=== PATIENT | female | born 1980 | race Caucasian/White ===

== ENCOUNTER 2022-04-30 11:25 | Emergency (ER) | payer OTHER, SELFPAY ==
[2022-04-30 11:42] VITALS: BP 123/87; PULSE 107; RESP 22; TEMP 36.6; O2SAT 98
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
== END 2022-04-30 14:47 | disposition home or self-care (01) ==
PROVIDERS: Emergency Provider Nurse Practitioner Family
DX: S06.0X1A Concussion with loss of consciousness of 30 minutes or less, initial encounter (principal); V89.2XXA Person injured in unspecified motor-vehicle accident, traffic, initial encounter
CPT/HCPCS: 99281; 99284

== ENCOUNTER 2022-10-06 01:38 | Outpatient (CLI) | payer BC, SELFPAY ==
[2022-10-06 12:45] LABS: Anion Gap 7.6 mmol/L (3-11); BUN 10 mg/dL (7-18); CO2 30.4 mmol/L (21.0-32.0); CREATININE 0.8 mg/dL (0.55-1.02); Calcium 8.8 mg/dL (8.5-10.1); Calculated LDL 212 mg/dL (<100); Chloride 101 mmol/L (98-107); Cholesterol 288 mg/dL (<200); Glucose 81 mg/dL (74-106); HDL Cholesterol 51 mg/dL (40-60); Potassium 3.8 mmol/L (3.5-5.1); Sodium 139 mmol/L (136-145); TSH (W/Ref FT4) 2.64 uIU/mL (0.36-3.74); Triglyceride 125 mg/dL (<150)
== END 2022-10-06 01:39 | disposition home or self-care (01) ==
LOC: LOS 01:39
PROVIDERS: PCP Nurse Practitioner Family; Visit Provider Nurse Practitioner Family
DX: E03.9 Hypothyroidism, unspecified (principal)
CPT/HCPCS: 36415; 80048; 80061; 84443

== ENCOUNTER 2022-10-16 04:04 | Outpatient (CLI) | payer BC, SELFPAY ==
[2022-10-16 10:10] LABS: Hemoglobin A1C 5.3 % (<5.7)
[2022-10-16 10:17] LABS: ALT 20 U/L (14-59); AST 14 U/L (15-37); Albumin 3.9 g/dL (3.4-5.0); Alkaline Phosphatase 40 U/L (46-116); Anion Gap 9.2 mmol/L (3-11); BUN 12 mg/dL (7-18); Bilirubin, Total 0.6 mg/dL (0.2-1.0); CO2 26.8 mmol/L (21.0-32.0); CREATININE 0.9 mg/dL (0.55-1.02); Calcium 8.9 mg/dL (8.5-10.1); Chloride 103 mmol/L (98-107); Estimated GFR 81.35 (mL/min/1.73m2); Ferritin 43 ng/mL (8-252); Folate 16.3 ng/mL (8.6-20.0); Glucose 93 mg/dL (74-106); Potassium 3.6 mmol/L (3.5-5.1); Sodium 139 mmol/L (136-145); TSH 2.62 uIU/mL (0.36-3.74); Total Protein 7.4 g/dL (6.4-8.2); Vitamin B12 469 pg/mL (193-986)
[2022-10-16 10:20] LABS: Iron 155 ug/dL (50-170); Total Iron Binding Capacity 289 ug/dL (250-450); Transferrin Sat 54 % (15-50)
[2022-10-16 17:47] LABS: T3,Free 3.5 pg/mL (2.8-5.3)
[2022-10-16 19:18] LABS: Thyroperoxidase Antibody 984 U/mL (<=60)
[2022-10-17 16:45] LABS: Lipoprotein (a) 170 nmol/L (<75)
[2022-10-18 08:59] LABS: Homocysteine 7.2 umol/L (5.0-13.9)
[2022-10-19 13:59] LABS: IgA 99 mg/dL (85-499); Interpretation (See Note); Tissue Transglutaminase IgA <1.2 U/mL (<4.0)
== END 2022-10-16 04:05 | disposition home or self-care (01) ==
LOC: LBO 04:04
PROVIDERS: PCP Nurse Practitioner Family; Visit Provider Naturopath
DX: E78.5 Hyperlipidemia, unspecified (principal); R53.83 Other fatigue; R19.7 Diarrhea, unspecified; E03.8 Other specified hypothyroidism; R79.89 Other specified abnormal findings of blood chemistry
CPT/HCPCS: 36415; 80053; 82784; 83090; 83516; 83695; 82607; 82728; 82746; 83036; 83540; 83550; 84439; 84443; 84481; 86376

== ENCOUNTER 2022-11-16 08:51 | Outpatient (CLI) | payer BC, SELFPAY ==
[2022-11-16 13:34] LABS: Calculated LDL 199 mg/dL (<100); Cholesterol 265 mg/dL (<200); HDL Cholesterol 51 mg/dL (40-60); Triglyceride 75 mg/dL (<150)
== END 2022-11-16 08:52 | disposition home or self-care (01) ==
LOC: LOS 08:53
PROVIDERS: PCP Nurse Practitioner Family; Visit Provider Nurse Practitioner Family
DX: E78.5 Hyperlipidemia, unspecified (principal)
CPT/HCPCS: 36415; 80061

== ENCOUNTER 2022-12-18 00:51 | Outpatient (CLI) | payer BC, SELFPAY ==
--- NOTE | 2022-12-18 06:28 | ETT_ITS ---
APPROVED REPORT Exam: Exercise Treadmill Patient Location: Out-Patient Room/Bed: Stress Nurse: Luli Bailey RN Ordering Provider:ANDREELAZ BASSETTTANNER, Contact Number: [phone] BMI: 22.84 Baseline Rhythm: Sinus Rhythm Indications: Central chest pain Medical History Medical History: HLD, anxiety, depression, GERD, IBS Cardiac Medications: None Allergies: NKDA Cardiac Risk Factors: Family history, HLD Previous Cardiac Procedures: None Pretest Chest Pain Characteristics: None Exercise History: Indeterminate Physical Disabilities: None Lung Sounds: Clear to auscultation Heart Sounds: Regular Stress Test Details Test: Exercise stress testing was performed using a Ez protocol. Rest Stress HR Resting HR Supine: 82 bpm Max Heart Rate (APMHR): 176 bpm Resting HR Standin bpm Target HR (85% APMHR): 150 bpm Max HR Achieved: 179 bpm % of APMHR: 102 Recovery HR: 103 bpm HR response to stress: Normal HR response to stress BP Resting BP Supine: 106/82 mmHg Resting BP Standin/84 mmHg Max BP: 124/76 mmHg Recovery BP: 104/80 mmHg BP response to stress: Normal blood pressure response to stress. ECG Resting ECG: Sinus Rhythm, nonspecific ST-T abnormalities inferior and lateral leads Ectopy: Rare PVC Stress ECG: Sinus Tachycardia, nonspecific ST-T abnormalities inferior and lateral leads ST Change: No significant ST segment changes noted Arrhythmia: None Recovery ECG: Sinus Tachycardia, nonspecific ST-T abnormalities, inferior and lateral leads Recovery ST Change: No significant ST segment changes noted Recovery Arrhythmia: None Clinical Reason for Termination: Target HR Achieved, Fatigue Stress Symptoms: Chest discomfort (mild) , General Fatigue Exercise duration: 08 min18 sec Highest Stage Reached: Stage 3: 3.4 mph at 14% grade. Exercise capacity: 10.16 METs Angina Score: Non-Limiting Berry Treadmill Score: 3.4 Rate Pressure Product: [id number] Stress ECG Conclusion 1. Resting electrocardiogram showed an IVCD and nondiagnostic ST abnormalities 2. Patient exercised on the Ze protocol completed a workload of 10.16 METS 3. Normal heart rate and blood pressure response to exercise. Patient achieved greater than 100% of predicted heart rate for age 4. Electrocardiographic portion of the test was negative for myocardial ischemia 5. There were no significant dysrhythmias Berry Treadmill Score is 3.4 which is Moderate risk. Stress Test Summary STAGE Time (mins) Speed (mph) Grade (%) HR BP SpO2 SYMPTOMS METS Supine 82 106/82 100 Standing 99 108/84 100 1 3 1.7 10 146 120/78 95 Mild chest discomfort 4.5 2 6 2.5 12 164 124/70 98 Chest discomfort resolved 7 3 9 3.4 14 176 10 1 min recovery 132 124/76 98 3 min recovery 110 116/82 99 6 min recovery 103 104/80 99
== END 2022-12-18 01:11 ==
LOC: DI 00:52
PROVIDERS: PCP Nurse Practitioner Family; Visit Provider Nurse Practitioner Family
DX: R07.9 Chest pain, unspecified (principal)
CPT/HCPCS: 93017

== ENCOUNTER 2023-01-03 00:38 | Outpatient (CLI) | payer BC, SELFPAY ==
--- NOTE | 2023-01-03 07:30 | DI.US_ITS ---
Exam(s) US SOFT TISSUE EXTREMITY EXAM: US SOFT TISSUE EXTREMITY CLINICAL HISTORY: painful nodule of left leg,r22.42. TECHNIQUE: Ultrasound was performed using standard protocol. COMPARISON: No exams were available for comparison FINDINGS: Sonographic assessment utilizing grayscale and color Doppler imaging was performed and targeted to th e area of clinical concern. There is a 0.5 x 0.4 x 0.5 cm homogeneously cystic lesion in the left lower extremity corresponding t o the palpable abnormality. No internal vascularity is seen. It shows posterior acoustic enhancemen t consistent with a cystic lesion. IMPRESSION: 0.5 cm cystic lesion in the left lower extremity soft tissues corresponding to the palpable abnormali ty. Its appearance suggests a benign cyst. Sequelae of trauma, such as a resolving hematoma or sero ma, cannot be excluded. DATA REPOSITORY:
--- NOTE | 2023-01-03 07:30 | DI.MAMMO_ITS ---
Exam(s) MAMMO SCREENING EXAM: MAMMO SCREENING CLINICAL HISTORY: screening,Z12.39. TECHNIQUE: Bilateral full field digital CC and MLO mammographic images were obtained with 3D tomosyn thesis and utilizing computer aided detection (CAD). COMPARISON: Prior outside 2015 mammograms were reviewed. FINDINGS: There has been no significant change in the appearance and distribution of the fibroglandular tissue. There are no new spiculated masses nor malignant appearing microcalcification groups. There is no significant architectural distortion nor skin thickening-retraction. IMPRESSION: No radiographic evidence of malignancy. BI-RADS Category 1 - Negative Breast Density - Category C - Heterogeneously dense Breast density Category C or D implies that the patient has dense breast tissue. Dense breast tissue can make it harder to find cancer on a mammogram. Dense breast tissue is also associated with an incr eased risk of breast cancer. This information about the result of the mammogram report was provided to the patient to raise their awareness. Use this report when you speak with the patient about their risks for breast cancer, which includes their family history. At that time, you may recommend additional screening tests (Ultrasoun d or MRI) as these tests may add significant information. A negative radiographic report should not delay biopsy if a dominant or clinically suspicious mass is present. Up to ten percent of cancers are not identified on mammography. A negative report may reinforce clinical impression. Adenosis and dense breasts may obscure an underlying neoplasm. False positive reports average 6 to 10%. Patient will receive a letter notifying them of these results.
== END 2023-01-03 00:58 ==
LOC: DI 00:38
PROVIDERS: PCP Nurse Practitioner Family; Visit Provider Nurse Practitioner Family
DX: R22.42 Localized swelling, mass and lump, left lower limb (principal); Z12.31 Encounter for screening mammogram for malignant neoplasm of breast; R92.8 Other abnormal and inconclusive findings on diagnostic imaging of breast
CPT/HCPCS: 76881; 77063; 77067

== ENCOUNTER 2023-09-28 10:42 | Outpatient (CLI) | payer OTHER, SELFPAY ==
[2023-09-28 12:47] LABS: Abs Immature Grans 0.02 10^3/uL (0.0-0.06); Absolute Basophil Count 0.01 10^3/uL (0.0-0.2); Absolute Eosinophil Count 0.07 10^3/uL (0.0-0.7); Absolute Lymphocyte Count 1.98 10^3/uL (1.2-3.4); Absolute Monocyte Count 0.28 10^3/uL (0.1-0.8); Absolute Neutrophil Count 2.41 10^3/uL (1.2-6.7); Basophils % 0.2; Eosinophils % 1.5; HCT 39.6 % (36.0-46.0); HGB 13.2 g/dL (11.2-15.7); Immature Grans % 0.4; Lymphocytes % 41.5; MCH 29.5 pg (27.0-33.0); MCHC 33.3 % (32.0-36.0); MCV 89 fL (80-95); Monocytes % 5.9; Neutrophils % 50.5; Platelet Count 275 10^3/uL (130-400); RBC 4.47 10^6/uL (3.93-5.22); RDW 11.9 % (11.7-14.6); RDW-SD 38.4 fL; WBC 4.77 10^3/uL (4.4-10.8)
[2023-09-28 13:24] LABS: Anion Gap 9.3 mmol/L (3-11); BUN 10 mg/dL (7-18); CO2 28.7 mmol/L (21.0-32.0); CREATININE 0.9 mg/dL (0.55-1.02); Calcium 8.9 mg/dL (8.5-10.1); Calculated LDL 182 mg/dL (<100); Chloride 104 mmol/L (98-107); Cholesterol 255 mg/dL (<200); Estimated GFR 80.84 (mL/min/1.73m2); Glucose 97 mg/dL (74-106); HDL Cholesterol 57 mg/dL (40-60); Potassium 3.4 mmol/L (3.5-5.1); Sodium 142 mmol/L (136-145); TSH (W/Ref FT4) 3.39 uIU/mL (0.36-3.74); Triglyceride 83 mg/dL (<150)
[2023-09-28 13:38] LABS: Vitamin D 25 Total 28.1 ng/mL (30-100)
[2023-09-28 17:58] LABS: Thyroglobulin Antibody 58 U/mL (<=60); Thyroperoxidase Antibody 578 U/mL (<=60)
== END 2023-09-28 10:43 | disposition home or self-care (01) ==
LOC: LOS 10:45
PROVIDERS: PCP Nurse Practitioner Family; Visit Provider Nurse Practitioner Family
DX: Z00.00 Encounter for general adult medical examination without abnormal findings (principal); E78.5 Hyperlipidemia, unspecified
CPT/HCPCS: 36415; 80048; 80061; 82306; 86376; 84443; 85025

== ENCOUNTER 2024-02-22 13:43 | Outpatient (REF) | payer OTHER, SELFPAY ==
--- NOTE | 2024-02-22 13:30 | PAPFT_PTH ---
PATIENT: Narcisa Lester LOC: [facility] U#:[id number] AGE/SX: 43/F ROOM: RE02/22/[address]: Sharri Bailey DO : 1980 BED: DIS: 02/22/2024 SPEC #: [id number] RECD: 02/22/24 17:24 STATUS: SCOTTY REQ #: [id number] INNA: 02/22/24 13:[address]: Sharri Bailey DEPT: [facility] Cytology RECD BY: Magali Mccarthy ENTERED: 02/22/24 17:25 SP TYPE: PAPFT OTHR DR: Lauren Swan, THERAPEUTIC ASSISTANT Tissues: 1 - CX/ENDOCX FOR PAP SMEARS Procedures: PAP THIN PREP/[facility] Screening HPV DNA PROBE Comments: [id number] (HPV 16 & 18/45)
== END 2024-02-22 13:44 | disposition home or self-care (01) ==
LOC: LBN 13:43
PROVIDERS: PCP Nurse Practitioner Family; Visit Provider Obstetrics & Gynecology
DX: Z12.4 Encounter for screening for malignant neoplasm of cervix (principal)
CPT/HCPCS: 88142; 87624

== ENCOUNTER 2024-12-31 12:59 | Outpatient (REF) | payer OTHER, SELFPAY ==
[2024-12-31 21:11] LABS: Abs Immature Grans 0.01 10^3/uL (0.0-0.06); Absolute Basophil Count 0.01 10^3/uL (0.0-0.2); Absolute Eosinophil Count 0.01 10^3/uL (0.0-0.7); Absolute Lymphocyte Count 1.22 10^3/uL (1.2-3.4); Absolute Monocyte Count 0.31 10^3/uL (0.1-0.8); Absolute Neutrophil Count 4.93 10^3/uL (1.2-6.7); Basophils % 0.2 %; Eosinophils % 0.2 %; HCT 36.4 % (36.0-46.0); Immature Grans % 0.2 %; Lymphocytes % 18.8 %; MCH 29.6 pg (27.0-33.0); MCV 90 fL (80-95); MPV 10.9 fL (8.0-11.0); Monocytes % 4.8 %; Neutrophils % 75.8 %; Platelet Count 273 10^3/uL (130-400); RBC 4.05 10^6/uL (3.93-5.22); RDW 12.4 % (11.7-14.6); RDW-SD 41.1 fL; WBC 6.49 10^3/uL (4.4-10.8)
[2024-12-31 21:21] LABS: ALT 35 U/L (14-59); AST 21 U/L (15-37); Albumin 3.8 g/dL (3.4-5.0); Alkaline Phosphatase 65 U/L (46-116); Anion Gap 8.5 mmol/L (3-11); BUN 7 mg/dL (7-18); Bilirubin, Total 0.4 mg/dL (0.2-1.0); CO2 29.5 mmol/L (21.0-32.0); CREATININE 0.6 mg/dL (0.55-1.02); Calcium 9.1 mg/dL (8.5-10.1); Chloride 103 mmol/L (98-107); Estimated GFR 112.04 (mL/min/1.73m2); Glucose 85 mg/dL (74-106); Lipase 27 U/L (<78); Potassium 4.4 mmol/L (3.5-5.1); Sodium 141 mmol/L (136-145); Total Protein 7.2 g/dL (6.4-8.2)
== END 2024-12-31 13:00 | disposition home or self-care (01) ==
LOC: LBN 12:59
PROVIDERS: PCP Nurse Practitioner Family; Visit Provider Physician Assistant
DX: R10.32 Left lower quadrant pain (principal); N39.0 Urinary tract infection, site not specified
CPT/HCPCS: 80053; 83690; 85025; 87086